=== PATIENT | female | born 1985 | race Caucasian/White ===

== ENCOUNTER 2018-02-13 14:15 | Emergency (ER) | payer BC, OTHER ==
--- NOTE | 2018-02-13 14:26 | EDM.PDOC ---
ED HPI GENERAL MEDICAL PROBLEM - General Chief Complaint: Flank Pain Stated Complaint: [id number] CANT STOP PUKING STOMACH CRAMPS LIGHT H Time Seen by Provider: 02/13/18 14:25 Source of Information: Reports: Patient, Old Records, RN, RN Notes Reviewed History Limitations: Reports: No Limitations - History of Present Illness INITIAL COMMENTS - FREE TEXT/NARRATIVE: Pt presents to ER by POV with c/o sudden onset of left flank pain yesterday. At first the pain would come and go. Now the pain has been more persistent, and associated with nausea and vomiting. She denies fever, chills, diarrhea, constipation, or painful urination. Denies injury, fall, or heavy lifting. Pt states the pain radiates from the left flank to the LLQ abdomen and left groin. 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 Flank Pain Score (Numeric/FACES): 7 - Related Data Allergies Allergy/AdvReac Type Severity Reaction Status Date / Time No Known Allergies Allergy Verified 02/13/18 14:28 Home Meds: Home Meds Ibuprofen 600 mg PO Q4H PRN #30 tablet 10/08/17 [Rx] Past Medical History HEENT History: Reports: Impaired Vision, Other (See Below) Other HEENT History: wears glasses Cardiovascular History: Reports: None Respiratory History: Reports: None Gastrointestinal History: Reports: None Genitourinary History: Reports: Other (See Below) Other Genitourinary History: ovarian cyst rupture 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, Other (See Below) Other OB/BYN History: ruptured ovarian cyst, , elective by D&C , dysmenorrhea, menorrhagia, pelvic adhesions Musculoskeletal History: Reports: Fracture Neurological History: Reports: None Psychiatric History: Reports: None Endocrine/Metabolic History: Reports: None Hematologic History: Reports: None Immunologic History: Reports: None Oncologic (Cancer) History: Reports: None Dermatologic History: Reports: Other (See Below) Other Dermatologic History: rash - Past Surgical History Head Surgeries/Procedures: Reports: None HEENT Surgical History: Reports: None Cardiovascular Surgical History: Reports: None Respiratory Surgical History: Reports: None GI Surgical History: Reports: None Female Surgical History: Reports: Section, Hysterectomy, Oophorectomy, Other (See Below) Other Female Surgeries/Procedures: have 2 uterus and 2 cervix Endocrine Surgical History: Reports: None Neurological Surgical History: Reports: None Musculoskeletal Surgical History: Reports: None Oncologic Surgical History: Reports: None Social & Family History - Family History Family Medical History: Noncontributory - Caffeine Use Caffeine Use: Reports: Coffee - Alcohol Use Alcohol Use History: No - Recreational Drug Use Recreational Drug Use: No - Living Situation & Occupation Occupation: Employed ED ROS GENERAL - Review of Systems Review Of Systems: ROS reveals no pertinent complaints other than HPI. ED EXAM, RENAL/ - Physical Exam Exam: See Below Exam Limited By: No Limitations General Appearance: Alert, WD/WN, No Apparent Distress, Other (uncomfortable appearing, non-toxic appearing) Nose: Normal Inspection Throat/Mouth: Normal Inspection, Normal Lips, Normal Teeth, Normal Gums, Normal Oropharynx, Normal Voice, No Airway Compromise Head: Atraumatic, Normocephalic Neck: Normal Inspection, Supple, Non-Tender, Full Range of Motion. No: Lymphadenopathy (L), Lymphadenopathy (R) Respiratory/Chest: No Respiratory Distress, Lungs Clear, Normal Breath Sounds, No Accessory Muscle Use, Chest Non-Tender Cardiovascular: Regular Rate, Rhythm, No Edema, Tachycardia GI/Abdominal: Normal Bowel Sounds, Soft, No Distention, No Abnormal Bruit, Tender (LUQ, LLQ). No: Guarding, Rigid, Rebound (Female) Exam: Deferred Rectal (Female) Exam: Deferred Back Exam: Full Range of Motion, CVA Tenderness (L). No: CVA Tenderness (R), Vertebral Tenderness Extremities: Normal Inspection Neurological: Alert, Oriented, No Motor/Sensory Deficits Psychiatric: Normal Affect, Normal Mood Skin Exam: Warm, Dry, Intact, Normal Color, No Rash Course - Vital Signs Last Recorded V/S: Last Vital Signs Temp 37.2 C 02/13/18 14:21 Pulse 105 H 02/13/18 14:21 Resp 16 02/13/18 14:21 BP 127/81 02/13/18 14:21 Pulse Ox 99 02/13/18 14:21 - Orders/Labs/Meds Orders: Active Orders 24 hr Category Date Time Status Peripheral IV Care [RC] . DIRECTED Care 02/13/18 14:53 Active DRUG SCREEN URINE BIORAD [URCHEM] Stat Lab 02/13/18 14:40 Ordered UA W/MICROSCOPIC [URIN] Stat Lab 02/13/18 14:40 Ordered Sodium Chloride 0.9% [Saline Flush] Med 02/13/18 14:53 Active 10 ml FLUSH ASDIRECTED PRN Peripheral IV Insertion Adult [OM.PC] Stat Oth 02/13/18 14:53 Ordered Medication Orders Sodium Chloride (Saline Flush) 10 ml FLUSH ASDIRECTED PRN PRN Reason: Keep Vein Open Last Admin: 02/13/18 15:08 Dose: 10 ml Labs: Laboratory Tests 02/13/18 02/13/18 02/13/18 Range/Units 14:40 14:40 15:08 WBC 13.7 H (5.0-10.0) 10^3/uL RBC 4.47 (4.2-5.4) 10^6/uL Hgb 14.5 (12.0-16.0) g/dL Hct 41.9 (37.0-47.0) % MCV 93.7 (80-100) fL MCH 32.4 (27.0-34.0) pg MCHC 34.6 (33.0-35.0) g/dL Plt Count 216 (150-450) 10^3/uL Neut % (Auto) 91.3 H (42.2-75.2) % Lymph % (Auto) 5.7 L (20.5-50.1) % Prentiss % (Auto) 2.8 (2-8) % Eos % (Auto) 0.2 L (1.0-3.0) % Baso % (Auto) 0.0 (0.0-1.0) % Sodium (135-145) mmol/L Potassium (3.6-5.0) mmol/L Chloride (101-111) mmol/L Carbon Dioxide (21.0-31.0) mmol/L Anion Gap BUN (7-18) mg/dL Creatinine (0.6-1.3) mg/dL Est Cr Clr Drug Dosing mL/min Estimated GFR (MDRD) BUN/Creatinine Ratio Glucose (74-105) mg/dL Calcium (8.4-10.2) mg/dl Total Bilirubin (0.2-1.0) mg/dL AST (10-42) IU/L ALT (10-60) IU/L Alkaline Phosphatase (42-121) IU/L Total Protein (6.7-8.2) g/dl Albumin (3.2-5.5) g/dl Globulin Albumin/Globulin Ratio Urine Color Yellow (YELLOW) Urine Appearance Clear (CLEAR) Urine pH 6.5 (5.0-9.0) Ur Specific [place] 1.020 (1.005-1.030) Urine Protein Negative (NEGATIVE) Urine Glucose (UA) Negative (NEGATIVE) Urine Ketones Negative (NEGATIVE) Urine Occult Blood Negative (NEGATIVE) Urine Nitrite Negative (NEGATIVE) Urine Bilirubin Negative (NEGATIVE) Urine Urobilinogen 0.2 (0.2-1.0) mg/dL Ur Leukocyte Esterase Negative (NEGATIVE) Urine RBC 0-5 /HPF Urine WBC 0-5 (0-5/HPF) /HPF Ur Epithelial Cells Moderate H /HPF Urine Bacteria Few (0-FEW/HPF) /HPF Urine Mucus Many H /LPF Urine Opiates Screen Negative (NEGATIVE) Ur Oxycodone Screen Negative (NEGATIVE) Urine Methadone Screen Negative (NEGATIVE) Ur Barbiturates Screen Negative (NEGATIVE) U Tricyclic Antidepress Negative (NEGATIVE) Ur Phencyclidine Scrn Negative (NEGATIVE) Ur Amphetamine Screen Negative (NEGATIVE) U Methamphetamines Scrn Negative (NEGATIVE) Urine MDMA Screen Negative (NEGATIVE) U Benzodiazepines Scrn Negative (NEGATIVE) Urine Cocaine Screen Negative (NEGATIVE) U Marijuana (THC) Screen Negative (NEGATIVE) 02/13/18 Range/Units 15:08 WBC (5.0-10.0) 10^3/uL RBC (4.2-5.4) 10^6/uL Hgb (12.0-16.0) g/dL Hct (37.0-47.0) % MCV (80-100) fL MCH (27.0-34.0) pg MCHC (33.0-35.0) g/dL Plt Count (150-450) 10^3/uL Neut % (Auto) (42.2-75.2) % Lymph % (Auto) (20.5-50.1) % Prentiss % (Auto) (2-8) % Eos % (Auto) (1.0-3.0) % Baso % (Auto) (0.0-1.0) % Sodium 137 (135-145) mmol/L Potassium 4.0 (3.6-5.0) mmol/L Chloride 102 (101-111) mmol/L Carbon Dioxide 25.0 (21.0-31.0) mmol/L Anion Gap 14.0 BUN 14 (7-18) mg/dL Creatinine 0.6 (0.6-1.3) mg/dL Est Cr Clr Drug Dosing 106.46 mL/min Estimated GFR (MDRD) > 60 BUN/Creatinine Ratio 23.33 Glucose 80 (74-105) mg/dL Calcium 9.5 (8.4-10.2) mg/dl Total Bilirubin 0.5 (0.2-1.0) mg/dL AST 35 (10-42) IU/L ALT 24 (10-60) IU/L Alkaline Phosphatase 91 (42-121) IU/L Total Protein 7.5 (6.7-8.2) g/dl Albumin 4.4 (3.2-5.5) g/dl Globulin 3.1 Albumin/Globulin Ratio 1.42 Urine Color (YELLOW) Urine Appearance (CLEAR) Urine pH (5.0-9.0) Ur Specific [place] (1.005-1.030) Urine Protein (NEGATIVE) Urine Glucose (UA) (NEGATIVE) Urine Ketones (NEGATIVE) Urine Occult Blood (NEGATIVE) Urine Nitrite (NEGATIVE) Urine Bilirubin (NEGATIVE) Urine Urobilinogen (0.2-1.0) mg/dL Ur Leukocyte Esterase (NEGATIVE) Urine RBC /HPF Urine WBC (0-5/HPF) /HPF Ur Epithelial Cells /HPF Urine Bacteria (0-FEW/HPF) /HPF Urine Mucus /LPF Urine Opiates Screen (NEGATIVE) Ur Oxycodone Screen (NEGATIVE) Urine Methadone Screen (NEGATIVE) Ur Barbiturates Screen (NEGATIVE) U Tricyclic Antidepress (NEGATIVE) Ur Phencyclidine Scrn (NEGATIVE) Ur Amphetamine Screen (NEGATIVE) U Methamphetamines Scrn (NEGATIVE) Urine MDMA Screen (NEGATIVE) U Benzodiazepines Scrn (NEGATIVE) Urine Cocaine Screen (NEGATIVE) U Marijuana (THC) Screen (NEGATIVE) Meds: Medications Generic Name Dose Route Start Last Admin Trade Name Freq PRN Reason Stop Dose Admin Sodium Chloride 10 ml 02/13/18 14:53 02/13/18 15:08 Saline Flush FLUSH 10 ml ASDIRECTED PRN Administration Keep Vein Open Discontinued Medications Generic Name Dose Route Start Last Admin Trade Name Lolita PRN Reason Stop Dose Admin Sodium Chloride 1,000 mls @ 999 mls/hr 02/13/18 14:54 02/13/18 15:07 Normal Saline IV 02/13/18 15:54 999 mls/hr .BOLUS ONE Administration Ketorolac Tromethamine 30 mg 02/13/18 14:54 02/13/18 15:09 Toradol IVPUSH 02/13/18 14:55 30 mg ONETIME ONE Administration Ondansetron HCl 4 mg 02/13/18 14:54 02/13/18 15:08 Zofran IV 02/13/18 14:55 4 mg ONETIME ONE Administration - Radiology Interpretation Free Text/Narrative:: CT Abd/Pelvis: no renal/ureteral stones, no acute appendicitis, but possible early appendix tip inflammation per Rad. report. - Re-Assessments/Exams Free Text/Narrative Re-Assessment/Exam: 02/13/18 17:04 I explained the exam findings, lab and CT results to the pt. I explained the poss. of an early appendicitis to the pt. The radiologist does not feel the appendix is inflamed or enlarged. Pt will be treated with antibiotics, pain control, and antiemetic, and the pt is instructed to return to the ER if she develops a fever, or is worse at any time. Also pt is instructed to f/u in clinic or return to ER for recheck of her abdomen tomorrow. Departure - Departure Time of Disposition: 17:09 Disposition: Home, Self-Care 01 Condition: Fair Clinical Impression: Abdominal pain Qualifiers: Abdominal location: lower abdomen, unspecified Qualified Code(s): R10.30 - Lower abdominal pain, unspecified - Discharge Information Instructions: Flank Pain, Adult, [id number], Abdominal Pain, Adult, Easy-to- Read Forms: ED Department Discharge Additional Instructions: Rx: Augmentin 875mg Rx: Flagyl 500mg Rx: Vernon 5mg/325mg *Do not drive or work while under the influence of this medication. Rx: Promethazine 25mg * Do not drive or work while under the influence of this medication. Follow up tomorrow for recheck of your abdominal pain. Return to ER if worse at any time, or if you develop a fever. - My Orders Last 24 Hours: My Active Orders 02/13/18 14:40 DRUG SCREEN URINE BIORAD [URCHEM] Stat UA W/MICROSCOPIC [URIN] Stat 02/13/18 14:53 Peripheral IV Care [RC] . DIRECTED Sodium Chloride 0.9% [Saline Flush] 10 ml FLUSH ASDIRECTED PRN Peripheral IV Insertion Adult [OM.PC] Stat - Assessment/Plan Last 24 Hours: My Active Orders 02/13/18 14:40 DRUG SCREEN URINE BIORAD [URCHEM] Stat UA W/MICROSCOPIC [URIN] Stat 02/13/18 14:53 Peripheral IV Care [RC] . DIRECTED Sodium Chloride 0.9% [Saline Flush] 10 ml FLUSH ASDIRECTED PRN Peripheral IV Insertion Adult [OM.PC] Stat
[2018-02-13] MEDS ORDERED: Sodium Chloride 0.9% 10 ML Syringe FLUSH PRN (14:53)
[2018-02-13] MEDS ORDERED: Ketorolac 30 MG/ML SDV IVPUSH ONE (14:54)
[2018-02-13] MEDS ORDERED: Sodium Chloride 0.9% 1,000 ML IV ONE (14:54)
[2018-02-13] MEDS ORDERED: Ondansetron 4 MG/2 ML SDV IV ONE (14:54)
[2018-02-13 15:40] LABS: CHLORIDE,CL 102 mmol/L (101-111); SODIUM,NA 137 mmol/L (135-145)
--- NOTE | 2018-02-13 16:28 | CT ---
Clinical history: 32-year-old 135 pound female smoker with left flank pain (previous hysterectomy). N o hematuria. Scan technique: Volume acquisition of data emergency unenhanced CT scan of the abdomen (kidneys/urete rs/bladder) obtained while the patient was lying supine on the Siemens multi slice scanner [place], [place]. All data archived in the PACS system for storage, reformatting and study. Interpretation: 1. Isolated tiny 1 mm diameter calcification pelvis, posteriorly on the left, behind and beneath the bladder that appears to lie outside the course of the distal left ureter; no dilatation of the ipsila teral left ureter or pyelocaliectasis (hydronephrosis) left kidney. 2. Normal reniform size, axis and configuration bilaterally. No nephrolithiasis. No renal cortical ma ss lesion (noncontrast exam). Uniformly dense renal permit suggests probable dehydration. Clinical? 3. Gallbladder, unenhanced liver, stomach, spleen, pancreas and adrenal glands anatomically correct i .e. negative. 4. No abdominal or pelvic mass lesion (surgically absent uterus and ovaries). No mesenteric/retroperi toneal lymphadenopathy. No sign of mechanical bowel obstruction, ascites or free intraperitoneal air. 5. Normal cardiac silhouette. Lung bases clear. Normal caliber aortoiliac vessels. Lumbar spine unrem arkable. CONCLUSION: No current signs of urolithiasis or obstructive uropathy. Tiny phlebolith left pelvis.
[2018-02-13 17:21] VITALS: BP 108/53
== END 2018-02-13 17:27 | disposition home or self-care (01) ==
LOC: DL.ED 14:15
DX: R10.32 Left lower quadrant pain (principal)
CPT/HCPCS: 36415; 74176; 80053; 80305; 81001; 85025; 96361; 96374; 96375; 99283; 99284; J1885; J2405; J7030; J7050

== ENCOUNTER 2018-02-14 12:05 | Emergency (ER) | payer SELFPAY ==
[2018-02-14 12:22] VITALS: BP 117/77
--- NOTE | 2018-02-14 12:25 | EDM.PDOC ---
ED HPI GENERAL MEDICAL PROBLEM - General Chief Complaint: Abdominal Pain Stated Complaint: FOLLOW-UP OF ABDOMINAL PAIN 02/14/2018 Time Seen by Provider: 02/14/18 12:20 Source of Information: Reports: Patient, Old Records, RN, RN Notes Reviewed History Limitations: Reports: No Limitations - History of Present Illness INITIAL COMMENTS - FREE TEXT/NARRATIVE: Pt seen here yesterday for abdominal pain that began at the left flank, then radiated and moved to the left abdomen, and eventually localized to the RLQ. She had N/V, and a WBC of 13.7 but no other Sx's or findings on lab, urine, or CT. Pt's recheck exam was suspicious for an early appendicitis, and although the appendix was not enlarged and there was no appendolith, but the distal tip did look "slightly" hazy. Pt has taken 2 doses of flagyl and augmentin, and 2 doses of norco, but still has mild to moderate generalized abdominal pain with nausea and vomiting, but no focal right lower abd. pain. Denies diarrhea, or urinary Sx's. Onset: Gradual Duration: Constant Location: Reports: Abdomen Quality: Reports: Ache Severity: Moderate Improves with: Reports: None Worsens with: Reports: None Associated Symptoms: Reports: No Other Symptoms Right Abdomen Pain Score (Numeric/FACES): 5 - Related Data Allergies Allergy/AdvReac Type Severity Reaction Status Date / Time No Known Allergies Allergy Verified 02/14/18 12:21 Home Meds: Home Meds Ibuprofen 600 mg PO Q4H PRN #30 tablet 10/08/17 [Rx] metroNIDAZOLE [Flagyl] 500 mg PO ONETIME 02/14/18 [History] Past Medical History HEENT History: Reports: Impaired Vision, Other (See Below) Other HEENT History: wears glasses Cardiovascular History: Reports: None Respiratory History: Reports: None Gastrointestinal History: Reports: None Genitourinary History: Reports: Other (See Below) Other Genitourinary History: ovarian cyst rupture 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: 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, Other (See Below) Other OB/BYN History: ruptured ovarian cyst, , elective by D&C , dysmenorrhea, menorrhagia, pelvic adhesions Musculoskeletal History: Reports: Fracture Neurological History: Reports: None Psychiatric History: Reports: None Endocrine/Metabolic History: Reports: None Hematologic History: Reports: None Immunologic History: Reports: None Oncologic (Cancer) History: Reports: None Dermatologic History: Reports: Other (See Below) Other Dermatologic History: rash - Infectious Disease History Infectious Disease History: Reports: Chicken Pox - Past Surgical History Head Surgeries/Procedures: Reports: None HEENT Surgical History: Reports: None Cardiovascular Surgical History: Reports: None Respiratory Surgical History: Reports: None GI Surgical History: Reports: None Female Surgical History: Reports: Section, Hysterectomy, Oophorectomy, Other (See Below) Other Female Surgeries/Procedures: have 2 uterus and 2 cervix Endocrine Surgical History: Reports: None Neurological Surgical History: Reports: None Musculoskeletal Surgical History: Reports: None Oncologic Surgical History: Reports: None Social & Family History - Family History Family Medical History: Noncontributory - Caffeine Use Caffeine Use: Reports: Coffee - Living Situation & Occupation Living situation: Reports: Single, with Family (with daughter, currently in a halfway hotel) Occupation: Employed ED ROS GENERAL - Review of Systems Review Of Systems: ROS reveals no pertinent complaints other than HPI. ED EXAM, GI/ABD - Physical Exam Exam: See Below Exam Limited By: No Limitations General Appearance: Alert, WD/WN, No Apparent Distress, Other (ill and uncomfortable, but non-toxic appearing). No: Active Emesis Eyes: Bilateral: Normal Appearance (no scleral icterus) Ears: Hearing Grossly Normal Nose: Normal Inspection, Normal Mucosa, No Blood Throat/Mouth: Normal Inspection, Normal Lips, Normal Teeth, Normal Gums, Normal Oropharynx, Normal Voice, No Airway Compromise Head: Atraumatic, Normocephalic Neck: Normal Inspection, Supple, Non-Tender, Full Range of Motion Respiratory/Chest: No Respiratory Distress, Lungs Clear, Normal Breath Sounds, No Accessory Muscle Use, Chest Non-Tender Cardiovascular: Normal Peripheral Pulses, Regular Rate, Rhythm, No Edema, No Gallop, No JVD, No Murmur, No Rub GI/Abdominal Exam: Soft, No Distention, No Abnormal Bruit, Tender (mild to moderate tenderness to palpation of epigastric, LUQ, LLQ and periumbilical regions, and slight tenderness of RUQ, non-tender at RLQ, no peritoneal signs). No: Guarding, Rigid, Rebound (Female) Exam: Deferred Rectal (Female) Exam: Deferred Back Exam: Normal Inspection, Full Range of Motion. No: CVA Tenderness (L), CVA Tenderness (R) Extremities: Normal Inspection Neurological: Alert, Oriented, CN II-XII Intact, Normal Cognition, Normal Gait, No Motor/Sensory Deficits Psychiatric: Normal Affect, Normal Mood Course - Vital Signs Last Recorded V/S: Last Vital Signs Temp 36.8 C 02/14/18 12:16 Pulse 85 02/14/18 12:16 Resp 16 02/14/18 12:16 BP 117/77 02/14/18 12:16 Pulse Ox 97 02/14/18 12:16 - Orders/Labs/Meds Orders: Active Orders 24 hr Category Date Time Status Peripheral IV Care [RC] . DIRECTED Care 02/14/18 13:02 Active UA W/MICROSCOPIC [URIN] Stat Lab 02/14/18 14:44 Ordered Sodium Chloride 0.9% [Saline Flush] Med 02/14/18 13:01 Active 10 ml FLUSH ASDIRECTED PRN Peripheral IV Insertion Adult [OM.PC] Stat Oth 02/14/18 13:01 Ordered Medication Orders Sodium Chloride (Saline Flush) 10 ml FLUSH ASDIRECTED PRN PRN Reason: Keep Vein Open Last Admin: 02/14/18 13:10 Dose: 10 ml Labs: Laboratory Tests 02/14/18 02/14/18 Range/Units 12:43 12:43 WBC 4.7 L (5.0-10.0) 10^3/uL RBC 4.03 L (4.2-5.4) 10^6/uL Hgb 12.7 D (12.0-16.0) g/dL Hct 38.2 (37.0-47.0) % MCV 94.8 (80-100) fL MCH 31.5 (27.0-34.0) pg MCHC 33.2 (33.0-35.0) g/dL Plt Count 193 (150-450) 10^3/uL Neut % (Auto) 58.7 (42.2-75.2) % Lymph % (Auto) 30.2 (20.5-50.1) % [place] % (Auto) 10.1 H (2-8) % Eos % (Auto) 0.8 L (1.0-3.0) % Baso % (Auto) 0.2 (0.0-1.0) % Sodium 136 (135-145) mmol/L Potassium 3.9 (3.6-5.0) mmol/L Chloride 102 (101-111) mmol/L Carbon Dioxide 28.0 (21.0-31.0) mmol/L Anion Gap 9.9 BUN 12 (7-18) mg/dL Creatinine 0.6 (0.6-1.3) mg/dL Est Cr Clr Drug Dosing 106.46 mL/min Estimated GFR (MDRD) > 60 BUN/Creatinine Ratio 20.00 Glucose 78 (74-105) mg/dL Calcium 9.1 (8.4-10.2) mg/dl Total Bilirubin 0.5 (0.2-1.0) mg/dL AST 25 (10-42) IU/L ALT 18 (10-60) IU/L Alkaline Phosphatase 75 (42-121) IU/L Total Protein 6.6 L (6.7-8.2) g/dl Albumin 3.6 (3.2-5.5) g/dl Globulin 3.0 Albumin/Globulin Ratio 1.20 Amylase 40 (28-100) U/L Lipase 20 L (22-51) U/L Meds: Medications Generic Name Dose Route Start Last Admin Trade Name Freq PRN Reason Stop Dose Admin Sodium Chloride 10 ml 02/14/18 13:01 02/14/18 13:10 Saline Flush FLUSH 10 ml ASDIRECTED PRN Administration Keep Vein Open Discontinued Medications Generic Name Dose Route Start Last Admin Trade Name Freq PRN Reason Stop Dose Admin Sodium Chloride 1,000 mls @ 999 mls/hr 02/14/18 13:01 02/14/18 13:09 Normal Saline IV 02/14/18 14:01 999 mls/hr .BOLUS ONE Administration Ondansetron HCl 4 mg 02/14/18 13:01 02/14/18 13:12 Zofran IV 02/14/18 13:02 4 mg ONETIME ONE Administration - Re-Assessments/Exams Free Text/Narrative Re-Assessment/Exam: 02/14/18 14:22 Pt clinically and lab/WBC appears to be improving. Not consistent with appendicitis. Plan to d/c pt to home and continue current tx plan. Departure - Departure Time of Disposition: 14:23 Disposition: Home, Self-Care 01 Condition: Fair Clinical Impression: Abdominal pain Qualifiers: Abdominal location: generalized Qualified Code(s): R10.84 - Generalized abdominal pain Vomiting Qualifiers: Vomiting type: unspecified Vomiting Intractability: non-intractable Nausea presence: with nausea Qualified Code(s): R11.2 - Nausea with vomiting, unspecified - Discharge Information Instructions: Abdominal Pain, Adult, [id number], Nausea and Vomiting, Adult, [id number] Forms: ED Department Discharge Additional Instructions: Rx: Zofran 4mg, for nausea. Continue current medications as prescribed. Follow up in clinic in 3 to 4 days for recheck. Return to ER if worse at any time. - My Orders Last 24 Hours: My Active Orders 02/14/18 13:01 Sodium Chloride 0.9% [Saline Flush] 10 ml FLUSH ASDIRECTED PRN Peripheral IV Insertion Adult [OM.PC] Stat 02/14/18 13:02 Peripheral IV Care [RC] . DIRECTED 02/14/18 14:44 UA W/MICROSCOPIC [URIN] Stat - Assessment/Plan Last 24 Hours: My Active Orders 02/14/18 13:01 Sodium Chloride 0.9% [Saline Flush] 10 ml FLUSH ASDIRECTED PRN Peripheral IV Insertion Adult [OM.PC] Stat 02/14/18 13:02 Peripheral IV Care [RC] . DIRECTED 02/14/18 14:44 UA W/MICROSCOPIC [URIN] Stat
[2018-02-14] MEDS ORDERED: Ondansetron 4 MG/2 ML SDV IV ONE (13:01)
[2018-02-14] MEDS ORDERED: Sodium Chloride 0.9% 1,000 ML IV ONE (13:01)
[2018-02-14] MEDS ORDERED: Sodium Chloride 0.9% 10 ML Syringe FLUSH PRN (13:01)
[2018-02-14 13:13] LABS: CHLORIDE,CL 102 mmol/L (101-111); SODIUM,NA 136 mmol/L (135-145)
== END 2018-02-14 14:58 | disposition home or self-care (01) ==
LOC: DL.ED 12:05
DX: R10.31 Right lower quadrant pain (principal); R11.2 Nausea with vomiting, unspecified
CPT/HCPCS: 36415; 80053; 81001; 82150; 83690; 85025; 96361; 96374; 99284; J2405; J7030; J7050; 99283

== ENCOUNTER 2018-02-16 13:03 | Emergency (ER) | payer SELFPAY ==
[2018-02-16 13:31] VITALS: BP 121/84
[2018-02-16] MEDS ORDERED: Sodium Chloride 0.9% 10 ML Syringe FLUSH PRN (14:13)
[2018-02-16] MEDS ORDERED: Iopamidol 612 MG/ML 75 ML Bottle IVPUSH ONE (14:13)
[2018-02-16] MEDS ORDERED: Ketorolac 30 MG/ML SDV IVPUSH ONE (14:24)
[2018-02-16] MEDS ORDERED: Ondansetron 4 MG/2 ML SDV IV ONE (14:24)
[2018-02-16] MEDS ORDERED: diphenhydrAMINE 50 MG/ML SDV IVPUSH ONE (14:24)
--- NOTE | 2018-02-16 16:30 | EDM.PDOC ---
Scribed by Ann Reed 02/16/18 [id number] for Seth Joe MD ED HPI GENERAL MEDICAL PROBLEM - General Chief Complaint: Abdominal Pain Stated Complaint: apendix problem Time Seen by Provider: 02/16/18 14:12 Source of Information: Reports: Patient, Old Records, RN, RN Notes Reviewed History Limitations: Reports: No Limitations - History of Present Illness INITIAL COMMENTS - FREE TEXT/NARRATIVE: Pt seen here on 02/13 and 02/14/18 with abdominal pain. Today she returns with c/o of severe left sided and occasional RLQ pain associated with nausea, vomiting, and has also now had onset of diarrhea last night. Pt reports fever, but was afebrile at triage. Denies abdominal distention, bloody or coffee ground emesis. Denies black, bloody, or melanotic stool. 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) Left Middle Abdomen Pain Score (Numeric/FACES): 5 - Related Data Allergies Allergy/AdvReac Type Severity Reaction Status Date / Time No Known Allergies Allergy Verified 02/14/18 12:21 Home Meds: Home Meds Ibuprofen 600 mg PO Q4H PRN #30 tablet 10/08/17 [Rx] metroNIDAZOLE [Flagyl] 500 mg PO ONETIME 02/14/18 [History] Past Medical History HEENT History: Reports: Impaired Vision, Other (See Below) Other HEENT History: wears glasses Cardiovascular History: Reports: None Respiratory History: Reports: None Gastrointestinal History: Reports: Other (See Below) Other Gastrointestinal History: abdominal pain Genitourinary History: Reports: Other (See Below) Other Genitourinary History: ovarian cyst rupture 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: 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, Other (See Below) Other OB/BYN History: ruptured ovarian cyst, , elective by D&C , dysmenorrhea, menorrhagia, pelvic adhesions Musculoskeletal History: Reports: Fracture Neurological History: Reports: None Psychiatric History: Reports: None Endocrine/Metabolic History: Reports: None Hematologic History: Reports: None Immunologic History: Reports: None Oncologic (Cancer) History: Reports: None Dermatologic History: Reports: Other (See Below) Other Dermatologic History: rash - Infectious Disease History Infectious Disease History: Reports: Chicken Pox - Past Surgical History Head Surgeries/Procedures: Reports: None HEENT Surgical History: Reports: None Cardiovascular Surgical History: Reports: None Respiratory Surgical History: Reports: None GI Surgical History: Reports: None Female Surgical History: Reports: Section, Hysterectomy, Oophorectomy, Other (See Below) Other Female Surgeries/Procedures: have 2 uterus and 2 cervix Endocrine Surgical History: Reports: None Neurological Surgical History: Reports: None Musculoskeletal Surgical History: Reports: None Oncologic Surgical History: Reports: None Social & Family History - Family History Family Medical History: Noncontributory - Tobacco Use Smoking Status *Q: Current Every Day Smoker Years of Tobacco use: 20 Packs/Tins Daily: 1 - Caffeine Use Caffeine Use: Reports: Coffee, Energy Drinks, Soda, Tea - Recreational Drug Use Recreational Drug Use: No - Living Situation & Occupation Living situation: Reports: Single, with Family (with daughter, currently in a senior living hotel) Occupation: Employed ED ROS GENERAL - Review of Systems Review Of Systems: ROS reveals no pertinent complaints other than HPI. ED EXAM, GI/ABD - Physical Exam Exam: See Below Exam Limited By: No Limitations General Appearance: Alert, WD/WN, No Apparent Distress, Obese, Other (tearful) Eyes: Bilateral: Normal Appearance (no scleral icterus) Nose: Normal Inspection, Normal Mucosa, No Blood Throat/Mouth: Normal Inspection, Normal Lips, Normal Oropharynx, Normal Voice, No Airway Compromise Head: Atraumatic, Normocephalic Neck: Normal Inspection, Supple, Non-Tender, Full Range of Motion Respiratory/Chest: No Respiratory Distress, Lungs Clear, Normal Breath Sounds, No Accessory Muscle Use, Chest Non-Tender Cardiovascular: Normal Peripheral Pulses, Regular Rate, Rhythm, No Edema, No Gallop, No JVD, No Murmur, No Rub GI/Abdominal Exam: Normal Bowel Sounds, Soft, No Distention, No Abnormal Bruit, Tender (generalized tenderness, sligtly worse at LLQ). No: Guarding, Rigid, Rebound (Female) Exam: Deferred Rectal (Female) Exam: Deferred Back Exam: Normal Inspection, Full Range of Motion. No: CVA Tenderness (L), CVA Tenderness (R) Extremities: Normal Inspection, Normal Range of Motion, Non-Tender, Normal Capillary Refill, No Pedal Edema Neurological: Alert, Oriented, CN II-XII Intact, Normal Cognition, Normal Gait, No Motor/Sensory Deficits Psychiatric: Anxious, Tearful Skin Exam: Warm, Dry, Intact, Normal Color, No Rash Course - Vital Signs Last Recorded V/S: Last Vital Signs Temp 37.2 C 02/16/18 13:29 Pulse 94 02/16/18 13:29 Resp 16 02/16/18 13:29 BP 121/84 02/16/18 13:29 Pulse Ox 99 02/16/18 13:29 - Orders/Labs/Meds Orders: Active Orders 24 hr Category Date Time Status Peripheral IV Care [RC] . DIRECTED Care 02/16/18 14:13 Active AMYLASE [CHEM] Stat Lab 02/16/18 14:46 Received COMPREHENSIVE METABOLIC PN,CMP [CHEM] Stat Lab 02/16/18 14:46 Received HCG QUALITATIVE,URINE [URCHEM] Stat Lab 02/16/18 14:12 Ordered LACTIC ACID [CHEM] Stat Lab 02/16/18 14:46 Received LIPASE [CHEM] Stat Lab 02/16/18 14:46 Received UA W/MICROSCOPIC [URIN] Stat Lab 02/16/18 14:12 Ordered Sodium Chloride 0.9% [Saline Flush] Med 02/16/18 14:13 Active 10 ml FLUSH ASDIRECTED PRN Peripheral IV Insertion Adult [OM.PC] Stat Oth 02/16/18 14:12 Ordered Medication Orders Sodium Chloride (Saline Flush) 10 ml FLUSH ASDIRECTED PRN PRN Reason: Keep Vein Open Last Admin: 02/16/18 14:55 Dose: 10 ml Labs: Laboratory Tests 02/16/18 02/16/18 02/16/18 Range/Units 14:12 14:12 14:46 WBC 6.2 (5.0-10.0) 10^3/uL RBC 4.14 L (4.2-5.4) 10^6/uL Hgb 13.3 (12.0-16.0) g/dL Hct 39.0 (37.0-47.0) % MCV 94.2 (80-100) fL MCH 32.1 (27.0-34.0) pg MCHC 34.1 (33.0-35.0) g/dL Plt Count 213 (150-450) 10^3/uL Neut % (Auto) 59.6 (42.2-75.2) % Lymph % (Auto) 28.1 (20.5-50.1) % [place] % (Auto) 10.5 H (2-8) % Eos % (Auto) 1.3 (1.0-3.0) % Baso % (Auto) 0.5 (0.0-1.0) % Urine Color Yellow (YELLOW) Urine Appearance Slightly cloudy (CLEAR) Urine pH 5.5 (5.0-9.0) Ur Specific Otter 1.015 (1.005-1.030) Urine Protein Negative (NEGATIVE) Urine Glucose (UA) Negative (NEGATIVE) Urine Ketones Negative (NEGATIVE) Urine Occult Blood Negative (NEGATIVE) Urine Nitrite Negative (NEGATIVE) Urine Bilirubin Negative (NEGATIVE) Urine Urobilinogen 0.2 (0.2-1.0) mg/dL Ur Leukocyte Esterase Trace H (NEGATIVE) Urine RBC Not seen /HPF Urine WBC 5-10 H (0-5/HPF) /HPF Ur Epithelial Cells Many H /HPF Urine Bacteria Few (0-FEW/HPF) /HPF Urine Mucus Many H /LPF Urine HCG, Qual Negative Meds: Medications Generic Name Dose Route Start Last Admin Trade Name Freq PRN Reason Stop Dose Admin Sodium Chloride 10 ml 02/16/18 14:13 02/16/18 14:55 Saline Flush FLUSH 10 ml ASDIRECTED PRN Administration Keep Vein Open Discontinued Medications Generic Name Dose Route Start Last Admin Trade Name Frechristin PRN Reason Stop Dose Admin Diphenhydramine HCl 25 mg 02/16/18 14:24 02/16/18 14:55 Benadryl IVPUSH 02/16/18 14:25 25 mg ONETIME ONE Administration Iopamidol 75 ml 02/16/18 14:13 02/16/18 14:21 Isovue-300 (61%) IVPUSH 02/16/18 14:14 75 ml ONETIME ONE Administration Ketorolac Tromethamine 30 mg 02/16/18 14:24 02/16/18 14:55 Toradol IVPUSH 02/16/18 14:25 30 mg ONETIME ONE Administration Ondansetron HCl 4 mg 02/16/18 14:24 02/16/18 14:55 Zofran IV 02/16/18 14:25 4 mg ONETIME ONE Administration - Radiology Interpretation Free Text/Narrative:: CT abdomen and pelvis: No acute process. Unremarkable appendix. No nephrolithiasis or urolithiasis. See rad report. Departure - Departure Time of Disposition: 16:26 Disposition: Home, Self-Care 01 Condition: Fair Clinical Impression: Gastroenteritis Abdominal pain Qualifiers: Abdominal location: generalized Qualified Code(s): R10.84 - Generalized abdominal pain - Discharge Information Instructions: Viral Gastroenteritis, Adult, Nausea and Vomiting, Adult, Easy-to -Read, Diarrhea, Adult, [id number] Forms: ED Department Discharge Additional Instructions: Rx: Bentyl (Dicyclomine) 20mg Clear liquid diet until nausea improves, then advance to soft bland diet as tolerated. Follow up in clinic in 2 to 3 days for recheck if not improving. - My Orders Last 24 Hours: My Active Orders 02/16/18 14:12 HCG QUALITATIVE,URINE [URCHEM] Stat UA W/MICROSCOPIC [URIN] Stat Peripheral IV Insertion Adult [OM.PC] Stat 02/16/18 14:13 Peripheral IV Care [RC] . DIRECTED Sodium Chloride 0.9% [Saline Flush] 10 ml FLUSH ASDIRECTED PRN 02/16/18 14:46 AMYLASE [CHEM] Stat COMPREHENSIVE METABOLIC PN,CMP [CHEM] Stat LACTIC ACID [CHEM] Stat LIPASE [CHEM] Stat - Assessment/Plan Last 24 Hours: My Active Orders 02/16/18 14:12 HCG QUALITATIVE,URINE [URCHEM] Stat UA W/MICROSCOPIC [URIN] Stat Peripheral IV Insertion Adult [OM.PC] Stat 02/16/18 14:13 Peripheral IV Care [RC] . DIRECTED Sodium Chloride 0.9% [Saline Flush] 10 ml FLUSH ASDIRECTED PRN 02/16/18 14:46 AMYLASE [CHEM] Stat COMPREHENSIVE METABOLIC PN,CMP [CHEM] Stat LACTIC ACID [CHEM] Stat LIPASE [CHEM] Stat I have read and agree with the documentation that has been completed regarding this visit. By signing this record, I attest that the documentation was completed in my physical presence and is an accurate record of the encounter.
[2018-02-16 16:48] LABS: CHLORIDE,CL 107 mmol/L (101-111); SODIUM,NA 139 mmol/L (135-145)
== END 2018-02-16 16:44 | disposition home or self-care (01) ==
LOC: DL.ED 13:03
DX: K52.9 Noninfective gastroenteritis and colitis, unspecified (principal); F17.210 Nicotine dependence, cigarettes, uncomplicated
CPT/HCPCS: 36415; 74178; 80053; 81001; 81025; 82150; 83605; 83690; 85025; 96374; 96375; 99284; J1200; J1885; J2405; J7050; Q9967; 99283